=== PATIENT | female | born 1965 | race Caucasian/White ===

== ENCOUNTER 2016-09-30 16:04 | Outpatient (CLI) | payer BC, OTHER ==
--- NOTE | 2016-09-30 17:49 | DIAGNOSTIC IMAGING REPORT ---
PROCEDURE: MG BILATERAL SCREENING W/CAD INDICATION: Screening. Baseline. TECHNIQUE: Bilateral CC and MLO digital views. COMPARISON: None. FINDINGS: Computer-aided detection applied. Moderately dense with a few dystrophic calcifications. There are two small groups of microcalcifications in the left breast, one of which is located in the lateral left breast (seen only on the CC view), while the other group is seen in the retroareolar region (seen only on MLO view). . IMPRESSION: 1. There are two groups of microcalcifications in the left breast. It is difficult to say whether these represent the same calcifications. Further mammographic views (true lateral view, CC and MLO magnification views) are recommended to further evaluate. RESULT CODE: 0- Incomplete; needs additional evaluation. A. A negative report should not delay biopsy if a dominant or clinically suspicious mass is present. 10-15% of cancers are not identified by x-ray. B. A negative report may reinforce clinical impression. C. Adenosis and dense breasts may obscure an underlying neoplasm. D. False positive reports average 6-10%. E.. A yearly screening mammogram is recommended. A reminder letter will be scheduled.
== END 2016-09-30 23:00 ==
LOC: MAM SRH 16:04
DX: Z12.31 Encounter for screening mammogram for malignant neoplasm of breast (principal)

== ENCOUNTER 2016-10-14 15:57 | Outpatient (CLI) | payer BC, OTHER ==
--- NOTE | 2016-10-14 18:36 | DIAGNOSTIC IMAGING REPORT ---
PROCEDURE: MG UNILATERAL DIAG-LT W/CAD INDICATION: Follow-up left breast microcalcifications. TECHNIQUE: True lateral digital view of the left breast. In addition, spot CC and MLO magnification were obtained of the left breast (region of clinical concern). COMPARISON: Comparison made to screening mammogram on 09/30/2016. FINDINGS: MAMMOGRAM: Computer-aided detection applied. Confirmation of few groups of benign-appearing microcalcifications in the left breast (some of which are located on the skin surface). No evidence of suspicious calcification. Left breast ultrasound is not indicated at this time. IMPRESSION: 1. Confirmation of benign-appearing microcalcifications in the left breast. 2. Negative mammogram. 3. Resume routine screening schedule (September 2017). 4. Findings discussed with the patient. RESULT CODE: 2- Benign finding(s). A. A negative report should not delay biopsy if a dominant or clinically suspicious mass is present. 10-15% of cancers are not identified by x-ray. B. A negative report may reinforce clinical impression. C. Adenosis and dense breasts may obscure an underlying neoplasm. D. False positive reports average 6-10%. E.. A yearly screening mammogram is recommended. A reminder letter will be scheduled.
== END 2016-10-14 23:00 ==
LOC: MAM SRH 15:57
DX: R92.0 Mammographic microcalcification found on diagnostic imaging of breast (principal)